=== PATIENT | female | born 1950 | race Caucasian/White ===

== ENCOUNTER 2025-03-24 19:20 | Emergency (ER) | payer MEDICARE, BC, SELFPAY ==
--- NOTE | 2025-03-24 19:20 | EKG_ITS ---
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1950 Requested By: ED Temporary Provider Order Number: [id number] Reading MD: ED Temporary Provider Measurements Intervals [place] Rate: 97 P: [place]: QRS: 7 QRSD: 98 T: 257 QT: 336 QTc: 428 Interpretive Statements ATRIAL FIBRILLATION MINIMAL VOLTAGE CRITERIA FOR LVH, CONSIDER NORMAL VARIANT [MEETS CRITERIA IN ONE OF: R(aVL), S(V1), R(V5), R(V5/V6)+S(V1)] POSSIBLE ANTERIOR MYOCARDIAL INFARCTION , OF INDETERMINATE AGE [30 ms Q WAVE IN V3/V4, OR R < 0.2 mV IN V4] ST DEVIATION AND MODERATE T-WAVE ABNORMALITY, CONSIDER LATERAL ISCHEMIA [-0.1+ mV T-WAVE IN I/aVL/V5/V6] ST DEVIATION AND MODERATE T-WAVE ABNORMALITY, CONSIDER INFERIOR ISCHEMIA [-0.1+ mV T-WAVE IN II/aVF] Compared to ECG 04/03/2018 16:43:00 Myocardial infarct finding now present Possible ischemia now present Sinus bradycardia no longer present T-wave abnormality still present /store/S0/[id number].pdf
[2025-03-24 19:21] VITALS: BMI 31.5
[2025-03-24 19:28] VITALS: BP 168/83; PULSE 100; RESP 16; TEMP 37.1; O2SAT 97
--- NOTE | 2025-03-24 19:50 | PD.EDRME ---
Rapid Medical Screening Exam RME Arrival date/time: 03/24/25 19:20 Chief Complaint: Arrhythmia/Palpitations Time Seen by Provider: 03/24/25 19:27 Vital signs: Vital Signs Temperature 98.8 F 03/24/25 19:28 Pulse Rate 100 03/24/25 19:28 Respiratory Rate 16 03/24/25 19:28 Blood Pressure 168/83 H 03/24/25 19:28 Pulse Oximetry (%) 97 03/24/25 19:28 Oxygen Delivery Method Room Air 03/24/25 19:28 RME Narrative: Intermittent shaking and palpitations for the past few weeks worsening today. Smart watch said she was in afib. Reports recent stress at home. hx afib years ago but no issues since pacemaker placement. Patient is on warfarin. No sob or cp.
--- NOTE | 2025-03-24 19:52 | XR_ITS ---
Examination: PA chest single view TECHNIQUE: Upright PA chest single view Date and time: March 24, 2025, 2047 hours INDICATIONS: Cardiac palpitations beginning last week. FINDINGS: Mild prominence left ventricle Cardiac leads satisfactory position Mild vascular congestion. No lobar pneumonia or pulmonary edema IMPRESSION:: Mild vascular congestion
[2025-03-24 20:38] LABS: Basophils # (Auto) 0.1 Thou/mm3 (0.0-0.2); Basophils % (Auto) 1 % (0-2.5); Eosinophils # (Auto) 0.1 Thou/mm3 (0.0-0.5); Eosinophils % (Auto) 2 % (0-10); Hematocrit 38.0 % (36.0-46.0); Hemoglobin 13.0 g/dL (12.0-16.0); Immature Granulocytes Auto 0.04 Thou/mm3 (0.00-0.00); Lymphocytes # (Auto) 2.2 Thou/mm3 (1.0-4.8); Lymphocytes % (Auto) 24 % (10-50); Mean Corpuscular HGB Conc 34.2 g/dl (31.0-37.0); Mean Corpuscular Hemoglobin 33.4 pg (25.0-35.0); Mean Corpuscular Volume 98 fL (80-100); Monocytes # (Auto) 0.8 Thou/mm3 (0.0-0.8); Monocytes % (Auto) 9 % (0-12); Neutrophils # (Auto) 5.9 Thou/mm3 (1.8-7.7); Neutrophils % (Auto) 65 % (37-80); Nucleated Red Blood Cell # 0.00 Thou/mm3 (0.00-0.00); Nucleated Red Blood Cell % 0 /100 WBC (0); Platelet Count 298 Thou/mm3 (140-440); RDW Standard Deviation 47.5 fL (36.4-46.3); Red Blood Count 3.89 Miln/mm3 (4.00-5.20); White Blood Count 9.1 Thou/mm3 (3.6-11.0)
[2025-03-24 20:52] LABS: INR 1.5 (0.9-1.3); Prothrombin Time 16.1 Seconds (9.0-12.2)
[2025-03-24 21:02] LABS: B-Type Natriuretic Peptide 336 pg/mL (0-100)
[2025-03-24 21:05] LABS: Alanine Aminotransferase 10 U/L (10-49); Albumin, Serum 4.2 gm/dL (3.4-4.8); Albumin/Globulin Ratio 1.4 (1.2-2.2); Alkaline Phosphatase 84 U/L (46-116); Anion Gap 7 (7-16); Aspartate Amino Transferase 22 U/L (0-34); BUN/Creatinine Ratio 19 Ratio (12-20); Bilirubin,Total 0.3 mg/dL (0.3-1.2); Blood Urea Nitrogen 21 mg/dL (9-23); Calcium 9.8 mg/dL (8.3-10.6); Calcium (Corrected) 9.8 mg/dL (8.5-10.1); Carbon Dioxide 24.1 mMol/L (20.0-31.0); Chloride 109 mMol/L (98-107); Creatinine (Component) 1.1 mg/dL (0.6-1.3); Estimated Creatinine Clearance 43.8 mL/min (>60); Free T4 (Free Thyroxine) 1.03 ng/dL (0.89-1.76); Globulin 2.9 gm/dL (2.3-3.5); Glucose 105 mg/dL (74-106); Magnesium 2.5 mg/dL (1.6-2.6); Osmolality,Calculated 282 (275-295); Potassium 3.8 mMol/L (3.4-5.1); Sodium 140 mMol/L (136-145); Thyroid Stimulating Hormone 2.27 uIU/mL (0.55-4.78); Total Protein 7.1 gm/dL (5.7-8.2); Troponin I 0.034 ng/mL (0.0-0.045); eGFR 52 See Note
[2025-03-25 00:17] VITALS: BP 176/82; PULSE 91; RESP 18; TEMP 36.9; O2SAT 96
--- NOTE | 2025-03-25 01:34 | EKG_ITS ---
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1950 Requested By: Kinsey Taylor Order Number: [id number] Reading MD: Kinsey Taylor Measurements Intervals [place] Rate: 84 P: [place]: QRS: 17 QRSD: 89 T: 266 QT: 345 QTc: 409 Interpretive Statements UNCERTAIN IRREGULAR RHYTHM ELECTRONIC VENTRICULAR PACEMAKER -- CONTOUR ANALYSIS BASED ON INTRINSIC RHYTHM LOW QRS VOLTAGE IN PRECORDIAL LEADS [QRS DEFLECTION < 1.0 mV IN CHEST LEADS] POSSIBLE ANTERIOR MYOCARDIAL INFARCTION , OF INDETERMINATE AGE [30 ms Q WAVE IN V3/V4, OR R < 0.2 mV IN V4] MODERATE T-WAVE ABNORMALITY, CONSIDER LATERAL ISCHEMIA [-0.1+ mV T-WAVE IN I/aVL/V5/V6] MODERATE T-WAVE ABNORMALITY, CONSIDER INFERIOR ISCHEMIA [-0.1+ mV T-WAVE IN II/aVF] Compared to ECG 03/24/2025 19:29:26 Low QRS voltage now present Atrial fibrillation no longer present Myocardial infarct finding still present T-wave abnormality still present Possible ischemia still present /store/S0/[id number]/[id number].pdf
--- NOTE | 2025-03-25 03:52 | PD.EDARRY ---
ED Arrhythmia Palp. RME/HPI General Chief Complaint: Arrhythmia/Palpitations Stated Complaint: PALPITATIONS Time Seen by Provider: 03/24/25 19:27 Arrival date/time: 03/24/25 19:20 RME / HPI RME / HPI narrative: Intermittent shaking and palpitations for the past few weeks worsening today. Smart watch said she was in afib. Reports recent stress at home. hx afib years ago but no issues since pacemaker placement. Patient is on warfarin. No sob or cp. Dr. Herndon?s Main ED Evaluation: 74yo female with a history of aFib, pacemaker presents to the ED for a chief complaint of shaking. Patient states she has been shaking for the last few weeks due to being stressed, but reports it significantly worsened today. Patient states her Apple Watch read her HR as aFib, so she came in for evaluation. Patient denies any fever, chills or any other associated symptoms. Related Data Home Medications ?Medication ?Instructions ?Recorded ?Confirmed aspirin 81 mg capsule 81 mg PO QDAY 06/15/22 06/15/22 Held on 06/15/22. Instructions: Resume on 06/17/22. diltiazem HCl 240 mg capsule,24 240 mg PO QDAY 06/15/22 06/15/22 hr,extended release furosemide 40 mg tablet 40 mg PO QDAY 06/15/22 06/15/22 propranolol 10 mg tablet 10 mg PO QDAY 06/15/22 06/15/22 Previous Rx's ?Medication ?Instructions ?Recorded cephalexin 500 mg tablet 500 mg PO Q6HR #12 tabs 06/15/22 Allergies Allergy/AdvReac Type Severity Reaction Status Date / Time walnut Allergy Severe Swelling Verified 03/24/25 19:21 of Lip/Tongue/Throat Review of Systems Review of Systems Systems Reviewed: All systems reviewed, normal except as documented Past Medical History Past Medical History NEUROLOGIC: Negative Neurological Disorders, Cerebrovascular Accident, Transient Ischemic Attacks (TIA), Dementia, Alzheimer's Disease, Parkinson's Disease, Brain Tumor, Meningitis, Seizures, Epilepsy, Multiple Sclerosis, Cerebral Palsy, Amyotrophic Lateral Sclerosis (ALS/Demi Gehrig's), Guillain-[place] Syndrome, Spina Bifida, Paralysis, Peripheral Neuropathy, Sarmiento's Palsy, Subdural Hematoma, Migraine, Head Trauma, Spinal Cord Injury or Traumatic Brain Injury CARDIAC: Negative Cardiac Disorders, Myocardial Infarction, Cardiac Arrhythmia, Atrial Fibrillation (New onset), Angina, Heart Murmur, Coronary Artery Disease, Atherosclerotic Heart Disease, Peripheral Vascular Disease, Hypercholesterolemia, Aneurysm, Congestive Heart Failure, Congenital Heart Disease, Valvular Heart Disease, Rheumatic Fever, Cardiomyopathy, Edema, Pericarditis, Cellulitis, Deep Vein Thrombosis, Hypertension, Hypotension or Varicose Veins RESPIRATORY: Negative Chronic Obstructive Pulmonary Disease (COPD), Asthma, Bronchitis, Emphysema, Pneumonia, Pulmonary Fibrosis, Cystic Fibrosis, Tuberculosis, Pulmonary Embolism, Pulmonary Edema or Sleep Apnea GASTROINTESTINAL: Negative Gastrointestinal Disorders (Belching), Cirrhosis, Pancreatitis, Celiac Disease, Gall Bladder Disease, Gastrointestinal Bleed, Esophageal Varices, Finn's Esophagus, Colitis, Ulcerative Colitis, Diverticulitis, Diverticulosis, Ulcer, Colorectal Cancer, Irritable Bowel, Crohn's Disease, Obstructive Bowel, Hiatal Hernia, Hemorrhoids, Gastroesophageal Reflux Disease or Obesity GENITOURINARY: Negative Genitourinary Disorders, Renal Disease, Kidney Stones, Polycystic Kidney Disease, Neurogenic Bladder, Inguinal Hernia, Dialysis, Prostate Cancer or Benign Prostatic Hyperplasia REPRODUCTIVE: Positive Previous Pregnancies (5 pregnancies; 2 C-sections); Negative Breast Cancer, Testicular Cancer or Uterine Prolapse MUSCULOSKELETAL: Positive Musculoskeletal Disorders (Carpal Tunnel) and Carpal Tunnel Syndrome; Negative Muscular Dystrophy, Myasthenia Gravis, Marfan's Syndrome, Bone Cancer, Arthritis, Rheumatoid Arthritis, Osteoporosis, Degenerative Disk Disease, Gout, Scoliosis, Fibromyalgia, Fractures, Degenerative Joint Disease, Osteomyelitis or Poliovirus ENT: Negative Cataracts, Glaucoma, Blind, Retinal Detachment, Macular Degeneration, Ear Infection, Deafness, Head Trauma or Eye Prosthesis ENDOCRINE: Negative Endocrine Disorders, Diabetes Mellitus Type 1, Diabetes Mellitus Type 2, Hypoglycemia, Marcelo's Syndrome, Raymond's Disease, Hyperthyroidism, Hypothyroidism, Parathyroid Disease, Pituitary Disease, Systemic Lupus Erythematosus, Syndrome of Inappropriate Antidiuretic Hormone (SIADH), Adrenal Disease or Graves' Disease HEMATOLOGIC: Negative Blood Disorders, Anemia, Leukemia, Hemophilia, Thalassemia, Sickle Cell Disease or Clotting Problems PSYCHO/SOCIAL: Positive Depression and Anxiety; Negative Psychiatric Problems, Schizophrenia, Recreational Drug Use, Bipolar Disorder, Behavior Problems, Self-Mutilation, Attention Deficit Disorder, Attention Deficit Hyperactivity Disorder, Depression, Post Traumatic Stress Disorder or Eating Disorder OTHER HISTORY: Negative Hospitalization, Autoimmune Disease, Down Syndrome, Autism, Developmental Delay, Shingles, Falls, Blood Transfusions, Blood Transfusion Reaction, Anesthesia Reactions, Organ Transplant, Chemotherapy, Radiation Therapy, Hyperbaric Therapy, MRSA, VRSA, Vancomycin-Resistant Enterococci, Breast Cancer, Cervical Cancer, Colorectal Cancer, Lung Cancer, Ovarian Cancer, Prostate Cancer or Testicular Cancer Family History FAMILY HISTORY: Positive Family Psychiatric Problems (Father- Alzheimers), Family Cardiac Disorders (Mother-pacemaker; Father- GA), Family Cancer (Myeloma Cancer) and Family Surgery; Negative Family Respiratory Disorders or Family Gastrointestinal Problems Surgical History SURGICAL: Positive Section (x2); Negative Cardiac Surgery, Open Heart Surgery, Coronary Artery Bypass Graft, Valve Replacement, Vascular Surgery, Coronary Stent, Cardiac Catheterization, Pacemaker, Angiogram, Auto Implanted Cardiovert Defib, Carotid Endarterectomy, Endocrine Surgery, Thyroidectomy, Ear Surgery, Tympanostomy Tube, Eye Surgery, Nose Surgery, Oral Surgery, Tonsillectomy, Adenoidectomy, Cochlear Implant, Corneal Transplant, Throat Surgery, Abdominal Surgery, Tracheostomy, Gastric Bypass Surgery, Gastrostomy, Bowel Surgery, Nephrectomy, Transurethral Resection, Joint Replacement, Amputation, Open Reduction Internal Fixation, Arthroscopy, Neurologic Surgery, Brain Shunt, Mastectomy, Lumpectomy, Hysterectomy, Tubal Ligation, Vasectomy or Organ Transplant Social History SMOKING STATUS: Never smoker SECOND HAND EXPOSURE: Yes ED Exam Narrative Physical exam: GEN. APPEARANCE: The patient is alert awake oriented X-3 in no distress, lying down comfortably, does not look ill/toxic. Patient has good eye contact. Patient is cooperative. VITALS: All vitals were reviewed and the pulse ox is 96% on room air which is normal according to my interpretation. HEENT: Normocephalic, atraumatic. Pupils are equal and reactive. Oral mucosa is moist. Patent Nares NECK: Supple, nontender, no thyromegaly, no meningismus, no JVD CHEST: Symmetrical, atraumatic, and with equal expansion , Nontender on palpation no deformity and no crepitus. CARDIOVASCULAR: Heart regular rhythm no murmur or gallop rub or extra beats. LUNGS: Clear to auscultation bilaterally with symmetrical chest rise. No laboring tachypnea or wheezing. No intercostal subcostal retraction. No rales and no rhonchi. ABDOMEN: Soft, flat, nontender to palpation, no guarding or rebound tenderness. There are no abnormal masses palpated. Active and normal bowel sounds. EXTREMITIES: Nontender. No edema. No cyanosis. Patient is able to move all 4 extremities well, with full ROM and good CSM. SKIN: Warm and dry, no jaundice or rashes noted. NEURO: Patient is SHEIKH x 4, Cranial nerves II through XII grossly intact. There is no focal neurologic deficits noted. GCS is 15, PNS and INFECTION CONTROL COORDINATOR appear grossly intact. PSYCHIATRIC: Patient is in normal mood and affect. Course Course Course Narrative: CXR is ordered for determining the etiology of palpitations. Quality Measures none Orders Category Date Time Status EKG (ED ONLY) *Do not use* NOW Care 03/24/25 19:20 Completed EKG (ED ONLY) *Do not use* NOW Care 03/25/25 01:34 Completed CXR [XR chest 1V] Stat Exams 03/24/25 19:52 Completed EKG (ED Only) Stat Exams 03/24/25 19:20 Draft EKG (ED Only) Stat Exams 03/25/25 01:34 Draft BNP [B-Type Natriuretic Peptide] Stat Lab 03/24/25 20:06 Completed CBC Stat Lab 03/24/25 20:06 Completed CMP [Comprehensive Metabolic Panel] Stat Lab 03/24/25 20:06 Completed Free T4 (Free Thyroxine) Stat Lab 03/24/25 20:06 Completed INR [Prothrombin Time with INR] Stat Lab 03/24/25 20:06 Completed Magnesium Stat Lab 03/24/25 20:06 Completed TSH [Thyroid Stimulating Hormone] Stat Lab 03/24/25 20:06 Completed Troponin I Stat Lab 03/24/25 20:06 Completed Furosemide [Lasix] Med 03/25/25 03:50 Once 20 mg PO X1 ONE Vital Signs Vital signs: Vital Signs Temperature 98.8 F 03/24/25 19:28 Pulse Rate 100 03/24/25 19:28 Respiratory Rate 16 03/24/25 19:28 Blood Pressure 168/83 H 03/24/25 19:28 Pulse Oximetry (%) 97 03/24/25 19:28 Oxygen Delivery Method Room Air 03/24/25 19:28 Arrhythmia/Palpitations MDM Narrative MDM Narrative:: Scribe Attestation: 03/25/25 - Radha Yeh am scribing for and in the presence of Dr. Herndon. Patient p/w palpitations, work up concerning for CHF exacerbation leading to arrythmia. Patient GCS 15, NAD, breathing RA. Provided diuresis, on re-eval HD stable NAD, feels better. Patient w/o chest pain or signs of HD instability. Less likely PE, dissection, ACS. Will dc to [place] with pcp and cardiology f/u Patient data External records reviewed:: [facility] previous records (Per chart review, patient was seen here on 11/07/22 for rapid aFib.) Clinical information provided by:: patient Social determinants that could affect healthcare access:: none Patient has the following chronic illnesses:: aFib, pacemaker How is presenting disease/condition affected by chronic disease/condition?: caused by Evaluation data The following diagnostics were reviewed and interpreted by me:: lab results, radiology exam(s) and EKG tracing(s) Lab and/or radiology exams considered but not ordered:: none Interpretation Summary: CBC normal, CMP normal, BNP 336. EKG done at 1929, NSR, rate of 97, normal QT, nonspecific ST-T changes, no acute ischemia, according to my interpretation. Repeat EKG done at 0134, paced rhythm, motion artifact, nonspecific ST-T changes, according to my interpretation. [facility] Report Signed Patient: DAWOOD JOHNSTON. Record#: [id number] Birthdate: 1950 Age/Sex: 74 / F Location: [facility] Attending Dr: Ordering Physician: Julio Farfan PA-C Date of Service: 03/24/25 Procedure(s): XR chest 1V Accession Number(s): [id number] cc: Av Chambers MD; NO PRIMARY/FAMILY,PHYSICIAN; Julio Farfan PA-C~ Examination: PA chest single view TECHNIQUE: Upright PA chest single view Date and time: March 24, 2025, 2047 hours INDICATIONS: Cardiac palpitations beginning last week. FINDINGS: Mild prominence left ventricle Cardiac leads satisfactory position Mild vascular congestion. No lobar pneumonia or pulmonary edema IMPRESSION:: Mild vascular congestion Dictated By: Av Chambers MD Signed By: <Electronically signed by Av Chambers MD in OV> 03/24/250 Medications / Prescriptions Medications or Prescriptions considered but not ordered:: none Medication administrations:: Medication Administration History Furosemide (Furosemide 20 Mg Tablet) 20 mg PO X1 ONE Stop: 03/25/25 03:51 see above Consultations Consultation(s) initiated? (list below): No Diagnosis Differential diagnosis arrhythmia/palpitations: palpitations, anxiety, artial fibrillation, artial flutter and other (CHF exacerbation) Most likely diagnosis given after review of the tests above:: see clinical impression below Admission Indicated Admission indicated?: not indicated Admission Request Was there a request for admission?: No Disposition Plan Disposition Plan: Discharge Discharge Attestation Discharge Attestation: The patient and all family members were given an opportunity to ask questions and understood the discharge instructions. Discharge instructions specifically effects, indications for sooner follow up or return to the emergency department, and the expected course of current diagnosis. Patient condition: Stable Discharge Plan Plan Patient Disposition: HOME (Self Care) Prescriptions/Referrals Prescriptions/Med Rec: No Action furosemide 40 mg Tablet 40 mg PO QDAY diltiazem HCl 240 mg Capsule,Extended Release 24 Hr 240 mg PO QDAY propranolol 10 mg Tablet 10 mg PO QDAY aspirin 81 mg Capsule 81 mg PO QDAY cephalexin 500 mg Tablet 500 mg PO Q6HR Qty: 12 0RF Referrals: No Primary/Family,Physician [Primary Care Provider] - In 1 week Problem List Clinical Impression: Atrial fibrillation Patient/Caregiver Discharge Instructions Education Materials: AFL/Afib Additional Instructions: I recommend that you follow-up with your primary care doctor as well as your equipment installer Dr. Ford to discuss your symptoms today. Your BNP and your chest x-ray showed evidence of being fluid overloaded. Based on our discussion with you and your daughter Chayito over the phone we will trial a dose of Lasix today. If you feel better I support that you discuss this with your primary care doctor and your equipment installer as you may benefit from spot dose Lasix when you develop lower extremity swelling. Print Language: Cook Islander Stand Alone Forms: [facility] Award Info., Patient Portal Info Letter
[2025-03-25 04:13] VITALS: BP 162/85; PULSE 89
[2025-03-25 04:25] VITALS: RESP 16
== END 2025-03-25 04:26 | disposition home or self-care (01) ==
PROVIDERS: Physician Assistant; Emergency Provider Emergency Medicine
DX: I48.91 Unspecified atrial fibrillation (principal); R09.89 Other specified symptoms and signs involving the circulatory and respiratory systems; E78.00 Pure hypercholesterolemia, unspecified; Z79.01 Long term (current) use of anticoagulants; Z95.0 Presence of cardiac pacemaker
CPT/HCPCS: 36415; 71045; 80053; 83735; 83880; 84439; 84443; 84484; 85025; 85610; 93005; 99283; A9270

== ENCOUNTER 2025-08-17 16:45 | Emergency (ER) | payer MEDICARE, BC, SELFPAY ==
[2025-08-17 17:33] VITALS: BP 173/83; PULSE 88; RESP 18; TEMP 36.9; O2SAT 96; BMI 32.5
--- NOTE | 2025-08-17 17:44 | XR_ITS ---
Examination: CT brain head without contrast. 2-D sagittal coronal reconstructions Date and time of exam: August 17, 2025, 1817 hours, comparison October 28, 2017 INDICATIONS: Ground-level fall today with injury to the forehead, head pain CTDI: vol (mGy): 48.6 DLP: (mGycm): 968 Technique: Multiple CT axial sections of the brain have been obtained, 5 mm slice thickness. Contrast has not been administered. 2-D sagittal, coronal reconstructions have been obtained Low dose protocols were performed. One or more of the following dose reduction techniques were used; automated exposure control, adjustment of the mA and/or KV according to patient size, use of iterative reconstruction technique. Findings: No significant ventricular enlargement. Intra-axial or extra-axial hemorrhage density is not seen. No mass effect or midline shift Basal cisterns are not remarkable. Fourth ventricle is midline. Cranial vault intact. Impression: Negative for acute hemorrhage, mass effect or midline shift
--- NOTE | 2025-08-17 17:44 | EDRME_ITS ---
Rapid Medical Screening Exam [facility] Arrival date/time: 08/17/25 16:45 This is a 74-year-old female that comes into the emergency room with complaints of head injury. Patient has a small laceration to the top of her forehead. Patient has multiple medical issues. Patient reports that she has a pacemaker. She is also on warfarin. Patient was told to come to the emergency room to have her head scanned because she is on a blood thinner. Patient denies any loss of consciousness. Patient denies any episodes of vomiting or any other symptoms such as dizziness. I have greeted and performed a focused initial assessment of this patient. Initial appropriate labs ordered at this time. A comprehensive ED assessment and evaluation of the patient and analysis of all test and completion of medical decision making process will be conducted by additional ED provider. Chief Complaint: Fall Time Seen by Provider: 08/17/25 17:35 Vital signs: Vital Signs Temperature 98.4 F 08/17/25 17:33 Pulse Rate 88 08/17/25 17:33 Respiratory Rate 18 08/17/25 17:33 Blood Pressure 173/83 H 08/17/25 17:33 Pulse Oximetry (%) 96 08/17/25 17:33 Oxygen Delivery Method Room Air 08/17/25 17:33 Exam: Alert and oriented. Breathing even and unlabored. Skin warm and dry. Clinical Impression: Please follow-up with mental hygiene consultant in the next 24-48 hours. At this time PECARN pediatric head injury assessment tool does not recommend a CT scan. There is no loss of consciousness, vomiting, or evidence of fracture. Family was given strict return precautions to return to the emergency room for any evidence of worsening signs or symptoms including vomiting, confusion, loss of consciousness, eye gazing, or for any evidence of worsening symptoms.
[2025-08-17] MEDS: DIPHTH,PERTUSS(ACELL),TET VAC 0.5 ML SYR- ADULT IMi (20:41)
[2025-08-17 21:00] VITALS: BP 170/85; PULSE 85; RESP 14; TEMP 37; O2SAT 99
--- NOTE | 2025-08-17 21:45 | PD.EDADULT ---
ED General RME/HPI General Chief complaint: Fall Stated complaint: FALL HITTING FOREHEAD; LAC ON FOREHEAD Time Seen by Provider: 08/17/25 17:35 Arrival date/time: 08/17/25 16:45 CC: Headache, thumb pain HPI all after a ground-level fall approximately 5 hours ago, the patient is on Coumadin, and is concerned. Patient denies loss of consciousness altered level of consciousness nausea vomiting diplopia shortness of breath difficulty breathing. Localized thumb pain is 1-2 out of 10 scale. Headache is secondary to a frontal laceration approximately 1 cm in length which is already closed and stop bleeding. RME / HPI RME / HPI narrative: 08/17/25 16:45 This is a 74-year-old female that comes into the emergency room with complaints of head injury. Patient has a small laceration to the top of her forehead. Patient has multiple medical issues. Patient reports that she has a pacemaker. She is also on warfarin. Patient was told to come to the emergency room to have her head scanned because she is on a blood thinner. Patient denies any loss of consciousness. Patient denies any episodes of vomiting or any other symptoms such as dizziness. I have greeted and performed a focused initial assessment of this patient. Initial appropriate labs ordered at this time. A comprehensive ED assessment and evaluation of the patient and analysis of all test and completion of medical decision making process will be conducted by additional ED provider. Exam: Alert and oriented. Breathing even and unlabored. Skin warm and dry. 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 At this time PECARN pediatric head injury assessment tool does not recommend a CT scan. There is no loss of consciousness, vomiting, or evidence of fracture. Family was given strict return precautions to return to the emergency room for any evidence of worsening signs or symptoms including vomiting, confusion, loss of consciousness, eye gazing, or for any evidence of worsening symptoms. Related Data Home Medications ?Medication ?Instructions ?Recorded ?Confirmed aspirin 81 mg capsule 81 mg PO QDAY 06/15/22 06/15/22 Held on 06/15/22. Instructions: Resume on 06/17/22. diltiazem HCl 240 mg capsule,24 240 mg PO QDAY 06/15/22 06/15/22 hr,extended release furosemide 40 mg tablet 40 mg PO QDAY 06/15/22 06/15/22 propranolol 10 mg tablet 10 mg PO QDAY 06/15/22 06/15/22 Previous Rx's ?Medication ?Instructions ?Recorded cephalexin 500 mg tablet 500 mg PO Q6HR #12 tabs 06/15/22 Allergies Allergy/AdvReac Type Severity Reaction Status Date / Time walnut Allergy Severe Swelling Verified 08/17/25 16:49 of Lip/Tongue/Throat Review of Systems Review of Systems Narrative Review of Systems: GEN: No fever, no chills, no weight loss EYES: No discharge, no visual changes, no pain HEENT: No ear pain, no congestion, no sore throat PULM: No shortness of breath, no cough, no congestion CV: No chest pain, no dyspnea on exertion, no palpitations GI: No nausea, no vomiting, no diarrhea, no pain, no constipation : No frequency, no urgency, no dysuria MUSC/SKEL: + joint pain, no back pain SKIN: No rash PSYCH: No hallucinations, no depression HEME/LYMPH: No easy bleeding or bruising tendencies NEURO: No weakness, + headache Past Medical History Past Medical History NEUROLOGIC: Negative Neurological Disorders, Cerebrovascular Accident, Transient Ischemic Attacks (TIA), Dementia, Alzheimer's Disease, Parkinson's Disease, Brain Tumor, Meningitis, Seizures, Epilepsy, Multiple Sclerosis, Cerebral Palsy, Amyotrophic Lateral Sclerosis (ALS/Demi Gehrig's), Guillain-[place] Syndrome, Spina Bifida, Paralysis, Peripheral Neuropathy, Sarmiento's Palsy, Subdural Hematoma, Migraine, Head Trauma, Spinal Cord Injury or Traumatic Brain Injury CARDIAC: Negative Cardiac Disorders, Myocardial Infarction, Cardiac Arrhythmia, Atrial Fibrillation (New onset), Angina, Heart Murmur, Coronary Artery Disease, Atherosclerotic Heart Disease, Peripheral Vascular Disease, Hypercholesterolemia, Aneurysm, Congestive Heart Failure, Congenital Heart Disease, Valvular Heart Disease, Rheumatic Fever, Cardiomyopathy, Edema, Pericarditis, Cellulitis, Deep Vein Thrombosis, Hypertension, Hypotension or Varicose Veins RESPIRATORY: Negative Chronic Obstructive Pulmonary Disease (COPD), Asthma, Bronchitis, Emphysema, Pneumonia, Pulmonary Fibrosis, Cystic Fibrosis, Tuberculosis, Pulmonary Embolism, Pulmonary Edema or Sleep Apnea GASTROINTESTINAL: Negative Gastrointestinal Disorders (Belching), Cirrhosis, Pancreatitis, Celiac Disease, Gall Bladder Disease, Gastrointestinal Bleed, Esophageal Varices, Finn's Esophagus, Colitis, Ulcerative Colitis, Diverticulitis, Diverticulosis, Ulcer, Colorectal Cancer, Irritable Bowel, Crohn's Disease, Obstructive Bowel, Hiatal Hernia, Hemorrhoids, Gastroesophageal Reflux Disease or Obesity GENITOURINARY: Negative Genitourinary Disorders, Renal Disease, Kidney Stones, Polycystic Kidney Disease, Neurogenic Bladder, Inguinal Hernia, Dialysis, Prostate Cancer or Benign Prostatic Hyperplasia REPRODUCTIVE: Positive Previous Pregnancies (5 pregnancies; 2 C-sections); Negative Breast Cancer, Testicular Cancer or Uterine Prolapse MUSCULOSKELETAL: Positive Musculoskeletal Disorders (Carpal Tunnel) and Carpal Tunnel Syndrome; Negative Muscular Dystrophy, Myasthenia Gravis, Marfan's Syndrome, Bone Cancer, Arthritis, Rheumatoid Arthritis, Osteoporosis, Degenerative Disk Disease, Gout, Scoliosis, Fibromyalgia, Fractures, Degenerative Joint Disease, Osteomyelitis or Poliovirus ENT: Negative Cataracts, Glaucoma, Blind, Retinal Detachment, Macular Degeneration, Ear Infection, Deafness, Head Trauma or Eye Prosthesis ENDOCRINE: Negative Endocrine Disorders, Diabetes Mellitus Type 1, Diabetes Mellitus Type 2, Hypoglycemia, Marcelo's Syndrome, [place]'s Disease, Hyperthyroidism, Hypothyroidism, Parathyroid Disease, Pituitary Disease, Systemic Lupus Erythematosus, Syndrome of Inappropriate Antidiuretic Hormone (SIADH), Adrenal Disease or Graves' Disease HEMATOLOGIC: Negative Blood Disorders, Anemia, Leukemia, Hemophilia, Thalassemia, Sickle Cell Disease or Clotting Problems PSYCHO/SOCIAL: Positive Depression and Anxiety; Negative Psychiatric Problems, Schizophrenia, Recreational Drug Use, Bipolar Disorder, Behavior Problems, Self-Mutilation, Attention Deficit Disorder, Attention Deficit Hyperactivity Disorder, Depression, Post Traumatic Stress Disorder or Eating Disorder OTHER HISTORY: Negative Hospitalization, Autoimmune Disease, Down Syndrome, Autism, Developmental Delay, Shingles, Falls, Blood Transfusions, Blood Transfusion Reaction, Anesthesia Reactions, Organ Transplant, Chemotherapy, Radiation Therapy, Hyperbaric Therapy, MRSA, VRSA, Vancomycin-Resistant Enterococci, Breast Cancer, Cervical Cancer, Colorectal Cancer, Lung Cancer, Ovarian Cancer, Prostate Cancer or Testicular Cancer Family History FAMILY HISTORY: Positive Family Psychiatric Problems (Father- Alzheimers), Family Cardiac Disorders (Mother-pacemaker; Father- [place]), Family Cancer (Myeloma Cancer) and Family Surgery; Negative Family Respiratory Disorders or Family Gastrointestinal Problems Surgical History SURGICAL: Positive Section (x2); Negative Cardiac Surgery, Open Heart Surgery, Coronary Artery Bypass Graft, Valve Replacement, Vascular Surgery, Coronary Stent, Cardiac Catheterization, Pacemaker, Angiogram, Auto Implanted Cardiovert Defib, Carotid Endarterectomy, Endocrine Surgery, Thyroidectomy, Ear Surgery, Tympanostomy Tube, Eye Surgery, Nose Surgery, Oral Surgery, Tonsillectomy, Adenoidectomy, Cochlear Implant, Corneal Transplant, Throat Surgery, Abdominal Surgery, Tracheostomy, Gastric Bypass Surgery, Gastrostomy, Bowel Surgery, Nephrectomy, Transurethral Resection, Joint Replacement, Amputation, Open Reduction Internal Fixation, Arthroscopy, Neurologic Surgery, Brain Shunt, Mastectomy, Lumpectomy, Hysterectomy, Tubal Ligation, Vasectomy or Organ Transplant Social History SMOKING STATUS: Never smoker SECOND HAND EXPOSURE: Yes ED Exam Narrative Physical exam: [General: Obese not in any acute distress Head right frontal hematoma with an overlying laceration semilunar 1 cm and full-thickness already closed. No other step-offs hematoma induration ulceration or crepitus. HEENT: Eyes pupils are PERRLA EOMs are intact no entrapment mouth pink moist membranes uvula is midline face no facial asymmetry bogginess tenderness on palpation no raccoon's eyes araiza signs no epistaxis rhinorrhea or otorrhea. All of the subsystems HEENT are within acceptable limits Neck is supple nontender, no spinous process tenderness with palpation. Chest equal chest rise nontender to palpation Respiratory: Clear to auscultation no wheezes crackles or rubs CV: Rate rhythm is regular no murmurs rubs or clicks Abdomen is distended secondary to body habitus soft nontender no masses positive bowel sounds all 4 quadrants Back: No CVA tenderness no spinous process tenderness from cervical spine thoracic and lumbar spine Skin: Ecchymosis to the right forearm to the left thumb. Full-thickness laceration as noted above otherwise skin is intact no petechiae rash induration ulceration or crepitus Extremities: Moving all extremities against resistance cap refill less than 2 seconds neurosensory intact Neuro: Awake alert oriented x3 Glascow coma 15 no focal deficits] cranial nerves II through XII are grossly intact. Course Quality Measures none Orders Category Date Time Status CT head/brain wo con Stat Exams 08/17/25 17:44 Completed TET,DIP/PERT AC (Adult)-Tdap [Boostrix Adult (Tdap) Med 08/17/25 17:44 Discontinued Vacc] 0.5 ml IMI .ONCE ONE Vital Signs Vital signs: Vital Signs Temperature 98.4 F 08/17/25 17:33 Pulse Rate 88 08/17/25 17:33 Respiratory Rate 18 08/17/25 17:33 Blood Pressure 173/83 H 08/17/25 17:33 Pulse Oximetry (%) 96 08/17/25 17:33 Oxygen Delivery Method Room Air 08/17/25 17:33 PROCEDURES: Procedure Comment Forehead laceration site is already closed, Dermabond was applied and then Steri-Strips overlying this to maintain good approximation patient tolerated the procedure well. Discharge Plan Plan Patient Disposition: HOME (Self Care) Patient condition on transfer: Stable Prescriptions/Referrals Prescriptions/Med Rec: No Action furosemide 40 mg Tablet 40 mg PO QDAY diltiazem HCl 240 mg Capsule,Extended Release 24 Hr 240 mg PO QDAY propranolol 10 mg Tablet 10 mg PO QDAY aspirin 81 mg Capsule 81 mg PO QDAY cephalexin 500 mg Tablet 500 mg PO Q6HR Qty: 12 0RF Referrals: Leoncio Quinones MD [Primary Care Provider, Family Practice] - In 1 week Problem List Clinical Impression: Fall, Hematoma of forehead, Forehead laceration Patient/Caregiver Discharge Instructions Education Materials: Preventing Falls Moving Safely ..., ED Laceration: All Closures Print Language: Taiwanese Stand Alone Forms: [place] Award Info., Work/School Release, Patient Portal Info Letter PA/GREASER HELPER Supervising Physician PA/GREASER HELPER Supervising Physician: Michael Early ENP MDM Medication Administration(s) Medication Administration History Discontinued Medications Diphtheria/Tetanus/Acell Pertussis (Diphth,Pertuss(Acell),Tet Vac 0.5 Ml Syr- Adult) 0.5 ml IMi .ONCE ONE Stop: 08/17/25 17:45 Last Admin: 08/17/25 20:41 Dose: 0.5 ml Documented By: CICI
== END 2025-08-17 22:27 | disposition home or self-care (01) ==
PROVIDERS: Emergency Provider Emergency Medicine; PCP Family Medicine
DX: S01.81XA Laceration without foreign body of other part of head, initial encounter (principal); W18.30XA Fall on same level, unspecified, initial encounter; Z79.01 Long term (current) use of anticoagulants; Z95.0 Presence of cardiac pacemaker
CPT/HCPCS: 12011; 70450; 90471; 90715; 99282

== ENCOUNTER → 2025-09-22 | Outpatient (CLI) | payer MEDICARE, BC, SELFPAY ==
--- NOTE | 2025-09-22 13:30 | XR_ITS ---
Examination: MRI brain without intravenous contrast. Date and time of exam: September 22, 2025, 1513 hours, comparison May 17, 2022 INDICATIONS: Dizziness episodes after fall with tremors beginning 2023 Technique: Multiple axial and sagittal images of the brain obtained. Siemens high-resolution 1.5 Kira short bore scanners utilized. Sagittal sections, T1-weighted, TR 500, TE 14, are performed. Axial sections proton-density and T2-weighted have been obtained. Inversion recovery axial images, TR 9, 260, TE 111, TI 2500. Diffusion weighted images, axial sections, TR 4800, TE 128, B value 1000 Axial sections, ADC map, TR 4800, TE 128 Findings: Enlargement of the sella turcica is not present. The optic chiasm and infundibular are not remarkable. Prepontine and interpeduncular cisterns are not enlarged. There is no localized enlargement of the medulla or primo. Fourth ventricle and cerebellar tonsils appear normal in position. No subacute area of hemorrhage density is seen. Mass in the cerebellopontine angle region is not evident. Globes symmetrical. Orbital musculature including medial lateral rectus muscles do not exhibit abnormality. Diffusion-weighted images demonstrate no focus of restricted diffusion. Increased white matter signal moderate Mass effect upon the ventricular system is not identified. Impression: Negative for acute hemorrhage, mass effect or midline shift Moderate chronic microvascular white matter change No acute infarct
== END | disposition home or self-care (01) ==
PROVIDERS: PCP Family Medicine; Referring Provider Psychiatry & Neurology Neurology; Visit Provider Psychiatry & Neurology Neurology
DX: R90.82 White matter disease, unspecified (principal)
CPT/HCPCS: 70551